=== PATIENT | male | born 1980 | race Caucasian/White ===

== ENCOUNTER → 2017-03-17 | Outpatient (CLI) | payer BC ==
--- NOTE | 2017-03-17 10:41 | RAD ---
Scrotal ultrasound, 03/17/2017: History: Scrotal lump The right testicle measures 5.1 x 3.5 x 2.4 cm while the left testicle measures 4.9 x 3.3 x 2.6 cm. A tiny 2 mm epididymal cyst is present on the right. No other epididymal abnormality is detected. There are small bilateral hydroceles. There is a 5 mm echogenic extratesticular nodule on the right. There is posterior acoustic shadowing compatible with calcification. It is partially surrounded by hydrocele fluid. The appearance is that of a small benign scrotolith or "scrotal jamie". IMPRESSION: 1. No testicular abnormality is detected. 2. Small bilateral hydroceles. 3. Small right epididymal cyst. 4. Small right scrotolith.
== END | disposition home or self-care (01) ==
LOC: US 08:23
PROVIDERS: ATTEND Family Medicine
DX: N50.3 Cyst of epididymis (principal); N43.3 Hydrocele, unspecified; N50.89 Other specified disorders of the male genital organs
CPT/HCPCS: 76870